=== PATIENT | female | born 1960 | race Caucasian/White ===

== ENCOUNTER → 2016-12-02 | Outpatient (CLI) | payer BC | LOC: RAD 08:55 | DX: R10.12 Left upper quadrant pain (principal) ==

== ENCOUNTER 2019-10-02 20:33 | Emergency (ER) | payer BC ==
[~2019-10-02] VITALS: Ht 162.6 cm; Wt 70.5 kg
[2019-10-02] MEDS ORDERED: METOPROLOL SUCC50 M1 PO (21:02)
[2019-10-02] MEDS ORDERED: ESTRADIOL0.05 MG/24 TD (21:04)
[2019-10-02] MEDS ORDERED: ZOLOFT 100MG100 MG PO (21:05)
[2019-10-02] MEDS ORDERED: FISH OIL 1000MG1 CAP PO (21:05)
[2019-10-02 22:47] VITALS: BP 138/84
== END 2019-10-02 22:47 | disposition home or self-care (01) ==
LOC: ED 20:33
DX: S41.111A Laceration without foreign body of right upper arm, initial encounter (principal); Z23 Encounter for immunization; I10 Essential (primary) hypertension; W29.8XXA Contact with other powered hand tools and household machinery, initial encounter; Y92.009 Unspecified place in unspecified non-institutional (private) residence as the place of occurrence of the external cause
CPT/HCPCS: 90715